=== PATIENT | female | born 1980 | race Caucasian/White ===

== ENCOUNTER 2017-12-14 09:42 | Emergency (ER) | payer OTHER ==
[~2017-12-14] VITALS: Ht 167.6 cm; Wt 70.8 kg
[2017-12-14] MEDS ORDERED: LORAZEPAM 2 MG/1 ML VIAL IV ONE (10:00)
[2017-12-14] MEDS ORDERED: IV NORMAL SALINE 1000 ML BAG IV ONE (10:00)
[2017-12-14 10:07] LABS: *BILIRUBIN,URIN NEGATIVE (NEGATIVE); *BLOOD, URINE 1+ (NEGATIVE); *CLARITY,URINE CLEAR (CLEAR); *COLOR,URINE YELLOW (YELLOW); *KETONES,URINE NEGATIVE (NEGATIVE); *PROTEIN,URINE NEGATIVE (NEGATIVE); *UROBILINOGEN,URINE 0.2 E.U./dl (NORMAL); LEUKOCYTE ESTERASE ,URINE NEGATIVE (NEGATIVE); NITRITE, URINE NEGATIVE (NEGATIVE); PH,URINE 7.5 (5.0-8.0); UGLUCOSE NEGATIVE (NEGATIVE)
[2017-12-14 10:20] LABS: BASOPHILS # (AUTO) 0.1 K/uL (0.0-8.0); BASOPHILS % (AUTO) 0.9 % (0.0-2.0); EOSINOPHILS % (AUTO) 0.4 % (0.0-7.0); LYMPHOCYTES # (AUTO) 2.3 K/uL (20.0-40.0); LYMPHOCYTES % (AUTO) 23.7 % (20.5-51.5); MEAN CORPUSCULAR HEMOGLOBIN 29.2 uug (24.7-32.8); MEAN CORPUSCULAR HGB CONC 33 g/dL (32.3-35.6); MEAN CORPUSCULAR VOLUME 87.6 fL (75.5-95.3); MONOCYTES # (AUTO) 0.4 K/uL (2.0-10.0); NEUTROPHILS # (AUTO) 6.9 K/uL (1.8-8.9); PLATELET COUNT (AUTO) 240 K/uL (179-408); RED BLOOD CELL COUNT(AUTO) 4.79 MIL/uL (3.63-4.92); WHITE BLOOD COUNT (AUTO) 9.8 K/uL (3.8-11.8)
[2017-12-14 10:24] LABS: BACTERIA,URINE FEW /HPF (NONE SEEN); RBC,URINE 0-3 /HPF (0-3); SQUAMOUS EPITHELIAL CELL,UR FEW /HPF (NONE SEEN); WBC,URINE 0-3 /HPF (0-3)
[2017-12-14 10:27] LABS: CREATININE 0.8 mg/dL (0.6-1.3); POTASSIUM 3.6 mmol/L (3.5-5.1)
[2017-12-14 10:33] LABS: BILIRUBIN,DIRECT 0.1 mg/dL (0.0-0.2); BILIRUBIN,TOTAL 0.3 mg/dL (0.2-1.0)
[2017-12-14] MEDS ORDERED: LORAZEPAM 2 MG/1 ML VIAL ONE (10:41)
--- NOTE | 2017-12-14 11:05 | NUR ---
pt states feeling better and wishes to be discharge.
[2017-12-14 11:10] VITALS: BP 122/70
--- NOTE | 2017-12-14 11:10 | NUR ---
Patient discharged to home in stable conditon. Written and verbal after care instructions given. Patient verbalizes understanding of instructions.
== END 2017-12-14 11:11 | disposition home or self-care (01) ==
LOC: ER 09:42
DX: F45.8 Other somatoform disorders (principal); Z88.0 Allergy status to penicillin
CPT/HCPCS: 36415; 70030-TC; 71045; 83690; 84703; 85025; 87086; 93005; A4663; J2060; J7030

== ENCOUNTER 2018-01-01 15:57 | Inpatient (IN) | payer OTHER ==
[~2018-01-01] VITALS: Ht 160 cm; Wt 74.2 kg
[2018-01-01] MEDS ORDERED: HYDROMORPHONE 1 MG/1 ML DISP.SYRIN IV ONE (17:30)
[2018-01-01] MEDS ORDERED: ONDANSETRON 4 MG/2 ML VIAL IV ONE (17:30)
[2018-01-01] MEDS ORDERED: KETOROLAC TROMETHAMINE 30 MG INJ IVP ONE (17:45)
[2018-01-01 17:50] LABS: BASOPHILS # (AUTO) 0.1 K/uL (0.0-8.0); BASOPHILS % (AUTO) 0.9 % (0.0-2.0); EOSINOPHILS % (AUTO) 0.7 % (0.0-7.0); HEMATOCRIT 37.4 % (31.2-41.9); HEMOGLOBIN 12.5 g/dL (10.9-14.3); LYMPHOCYTES % (AUTO) 45.4 % (20.5-51.5); MEAN CORPUSCULAR HEMOGLOBIN 29.3 uug (24.7-32.8); MEAN CORPUSCULAR HGB CONC 34 g/dL (32.3-35.6); MEAN CORPUSCULAR VOLUME 87.4 fL (75.5-95.3); MONOCYTES # (AUTO) 0.4 K/uL (2.0-10.0); MONOCYTES % (AUTO) 5.5 % (0.0-11.0); NEUTROPHILS # (AUTO) 3.1 K/uL (1.8-8.9); NEUTROPHILS % (AUTO) 47.5 % (38.5-71.5); PLATELET COUNT (AUTO) 195 K/uL (179-408); RED BLOOD CELL COUNT(AUTO) 4.28 MIL/uL (3.63-4.92); WHITE BLOOD COUNT (AUTO) 6.6 K/uL (3.8-11.8)
[2018-01-01] MEDS ORDERED: ONDANSETRON 4 MG/2 ML VIAL ONE ×3 (17:52→22:32)
[2018-01-01 17:55] LABS: CREATININE 0.7 mg/dL (0.6-1.3); POTASSIUM 3.2 mmol/L (3.5-5.1)
[2018-01-01 18:01] LABS: BILIRUBIN,DIRECT 0.1 mg/dL (0.0-0.2); BILIRUBIN,TOTAL 0.4 mg/dL (0.2-1.0); TOTAL PROTEIN, SERUM 7.5 g/dL (6.4-8.2)
[2018-01-01 18:22] LABS: *BILIRUBIN,URIN NEGATIVE (NEGATIVE); *BLOOD, URINE NEGATIVE (NEGATIVE); *COLOR,URINE YELLOW (YELLOW); *KETONES,URINE NEGATIVE (NEGATIVE); *PROTEIN,URINE NEGATIVE (NEGATIVE); *UROBILINOGEN,URINE 0.2 E.U./dl (NORMAL); LEUKOCYTE ESTERASE ,URINE NEGATIVE (NEGATIVE); NITRITE, URINE NEGATIVE (NEGATIVE); UGLUCOSE NEGATIVE (NEGATIVE)
[2018-01-01 18:46] LABS: *CLARITY,URINE SLIGHTLY CLOUDY (CLEAR)
[2018-01-01 18:47] LABS: BACTERIA,URINE MODERATE /HPF (NONE SEEN); MUCUS,URINE MANY /LPF (0-FEW); RBC,URINE 0-3 /HPF (0-3); SQUAMOUS EPITHELIAL CELL,UR MANY /HPF (NONE SEEN); WBC,URINE 0-3 /HPF (0-3)
--- NOTE | 2018-01-01 19:04 | NUR ---
SBAR REPORT TO ROSHNI BOLAÑOS
[2018-01-01] MEDS ORDERED: ONDANSETRON IV *ER 4 MG/2 ML VIAL IV ONE ×2 (19:15→22:15)
[2018-01-01] MEDS ORDERED: MORPHINE SULFATE 2 MG/1 ML DISP.SYRIN IV ONE ×2 (19:15→22:10)
[2018-01-01] MEDS ORDERED: MORPHINE SULFATE 4 MG/1 ML DISP.SYRIN ONE ×2 (19:23→22:31)
--- NOTE | 2018-01-01 19:25 | NUR ---
Dr. Vyas at bedside for MSE.
[2018-01-01] MEDS ORDERED: IV NS 1000 ML 1,000 ML IV ONE ×2 (19:45→22:15)
[2018-01-01] MEDS ORDERED: LORAZEPAM 2 MG/1 ML VIAL ONE ×2 (19:56→22:53)
[2018-01-01] MEDS ORDERED: LORAZEPAM 2 MG/1 ML VIAL IV ONE ×2 (20:15→22:45)
--- NOTE | 2018-01-01 20:20 | NUR ---
Ultrasound at bedside.
--- NOTE | 2018-01-01 21:55 | NUR ---
NATHAN speaking with Dr. Chicas ([employer])
[2018-01-01] MEDS ORDERED: MORPHINE SULFATE 4 MG/1 ML DISP.SYRIN IV ONE (22:10)
--- NOTE | 2018-01-01 23:09 | NUR ---
Patient at bedside with friend, no acute distress, feels pain on movement on left groin.
--- NOTE | 2018-01-01 23:15 | NUR ---
Passed report to [facility] Tomlinsonsustephani/tele.
--- NOTE | 2018-01-01 23:20 | NUR ---
Received admission report from [facility].
[2018-01-02] MEDS ORDERED: HYDROCODONE/APAP 5-325MG TABLET PO PRN
[2018-01-02] MEDS ORDERED: ACETAMINOPHEN 325 MG TABLET PO PRN
[2018-01-02] MEDS ORDERED: ONDANSETRON 4 MG/2 ML VIAL IV PRN
[2018-01-02] MEDS ORDERED: Z GUARD REMEDY PASTE 57 GM TUBE TOP PRN
[2018-01-02] MEDS ORDERED: MORPHINE SULFATE 4 MG/1 ML DISP.SYRIN IV PRN
[2018-01-02] MEDS ORDERED: IV NS 1000 ML 1,000 ML IV SCH
[2018-01-02] MEDS ORDERED: ZOLPIDEM 5 MG TABLET PO PRN
[2018-01-02] MEDS ORDERED: MAGNESIUM HYDROXIDE 30 ML LIQUID UDC PO PRN
--- NOTE | 2018-01-02 00:22 | NUR ---
Admitted patient from ER via rney. AAO X 4. verbally responsive and able to move all extremities without difficulty except left leg due to pain on left groin area, Routine admission care done. Plan of care initiated.
[2018-01-02 00:24] VITALS: BP 107/53
--- NOTE | 2018-01-02 01:18 | NUR ---
Patient complaining of "excruciating pain" on her left groin and stating that morphine given 2 x in ER does not work and she prefer Dilaudid and Ativan to relieve her anxiety. Texted Génesis Rosenthal NP for an order. Patient made aware.
--- NOTE | 2018-01-02 01:25 | NUR ---
Patient refused Toradol ordered, stating that it does not work for her. Karen made aware. No new order given. Patient made aware and became upset and starts crying.
[2018-01-02] MEDS ORDERED: KETOROLAC TROMETHAMINE 15 MG INJ IVP PRN (01:30)
[2018-01-02] MEDS ORDERED: LORAZEPAM 1 MG TABLET PO PRN (01:30)
--- NOTE | 2018-01-02 02:05 | NUR ---
Patient went AMA. Génesis Rosenthal NP aware.
[2018-01-02] MEDS ORDERED: PANTOPRAZOLE SODIUM 40 MG VIAL IV SCH (09:00)
== END 2018-01-02 02:05 | disposition left against medical advice (07) | DRG 759 ==
LOC: ER 15:57 → TELE 23:30
PROVIDERS: ADMIT Internal Medicine; ATTEND Internal Medicine
DX: N70.11 Chronic salpingitis (principal); F41.0 Panic disorder [episodic paroxysmal anxiety]; K42.9 Umbilical hernia without obstruction or gangrene; Z90.49 Acquired absence of other specified parts of digestive tract; Z88.0 Allergy status to penicillin
CPT/HCPCS: 36415; 76856; 83690; 84703; 85025; A4663; J1885; J2060; J2270; J2405; J7030